=== PATIENT | male | born 1940 | race Caucasian/White ===

== ENCOUNTER 2016-08-19 08:35 | Inpatient (IN) | payer OTHER, MEDICARE ==
--- NOTE | 2016-08-14 08:51 | GHP ---
[f rep st] PREOP HISTORY AND PHYSICAL DATE OF ADMISSION: 08/19/2016 He will be an a.m. admission for surgery on August 19, 2016. PROBLEM: Right hip arthritis. HISTORY OF PRESENT ILLNESS: The patient is a 76-year-old man admitted for a right total hip arthrop lasty. He has had progressive pain in his right hip for the past 2 years. It has significantly wor sened since late 2015. He is having daily pain and night pain. Walking is painful. His activities are limited. He is using ibuprofen every day. He has trouble putting on his shoes and socks. He has tried physical therapy without much benefit. He has also tried dry needling which did not help. His activities of daily living are significantly affected by the pain in his hip. He is admitted for a right total hip arthroplasty. PAST MEDICAL HISTORY: He is treated for hypertension and glaucoma. No history of heart disease, st ents, DVT, hepatitis, or sleep apnea. No history of serious previous MRSA staph infections. CURRENT MEDICATIONS: Ibuprofen. DRUG ALLERGIES: None. He is allergic to bee stings. Metal allergy: None. Latex allergy: None. SOCIAL HISTORY: The patient is retired. He is . He does not smoke cigarettes and rustam garcia drinks alcohol. FAMILY HISTORY: Positive for cancer. PHYSICAL EXAMINATION: GENERAL: He is an alert, healthy-appearing man. EYES: His left eye has a p ermanently dilated pupil. MOUTH: Good oral hygiene. CHEST: Clear. HEART: Regular rhythm. No m urmurs. EXTREMITIES: Pertinent findings limited to his right hip. He has full hip extension and 9 0 degrees of flexion. External rotation 20 degrees. Internal rotation 0 degrees. Abduction 30 deg quintin. IMAGING: Films show severe degenerative arthritis of the right hip. He has some subchondral cysts in the acetabulum. He is bone on bone. He is 3 or 4 mm short on the right. IMPRESSION ON ADMISSION: 1. Right hip advanced degenerative arthritis. 2. Treatment for hypertension. 3. Treatment for glaucoma. 4. Permanently dilated left pupil. He will undergo a right total hip arthroplasty. The surgery has been described to him, including th e risks, complications, expectations, and recovery time. I have discussed with him the risk of disl ocation, leg length inequality, infection, and sciatic nerve injury. Nonsurgical options have been described. All his questions have been answered, and he consents to surgery. /[id number]/MODL
[~2016-08-19 08:35] MED LIST: ACETAMINOPHEN 325 MG TAB PO ONE; CEFAZOLIN 2 GM/DEXTR 100 ML IV ONE; CHLORHEXIDINE GLUC HIBICLENS 118 ML BTL TP ONE; DEXAMETHASONE 4 MG/ML VIAL IVP ONE; FAMOTIDINE 20 MG TAB PO ONE; NS IV ONE; POVIDONE-IODINE 20 ML in SODIUM CL IRRIG SOLUTION 500 ML IRR ONE; ROPI/epiNEPH/KETOROLAC JOINT COCKTAIL IU ONE; TRANEXAMIC ACID IV ONE
[2016-08-19] MEDS ORDERED: LR 1,000 ML IV ONE (09:08)
[2016-08-19] MEDS ORDERED: LIDOCAINE 1% 5 ML SDV ID PRN (09:08)
[2016-08-19] MEDS ORDERED: DEXAMETHASONE 4 MG/ML VIAL ONE (09:11)
[2016-08-19] MEDS ORDERED: ACETAMINOPHEN 325 MG TAB ONE (09:12)
[2016-08-19] MEDS ORDERED: FAMOTIDINE 20 MG TAB ONE (09:12)
[2016-08-19] MEDS ORDERED: CEFAZOLIN 2 GM/DEXTROSE/100 ML BAG IV ONE (09:12)
[2016-08-19] MEDS ORDERED: fentaNYL 100 MCG/2 ML INJ ONE (09:14)
[2016-08-19] MEDS ORDERED: PROPOFOL/EMULSION 500 MG/50 ML BOTTLE IV ONE (09:14)
[2016-08-19] MEDS ORDERED: ceFAZolin 1 GM/5 ML SYR ONE (09:33)
[2016-08-19] MEDS ORDERED: BUPIVACAINE 0.5% 30 ML SDV ONE (10:30)
[2016-08-19] MEDS ORDERED: GLYCOPYRROLATE 0.2 MG/1 ML VIAL ONE (11:00)
[2016-08-19] MEDS ORDERED: ATROPINE SULFATE 1 MG/ML VIAL ONE (11:02)
[2016-08-19] MEDS ORDERED: epHEDrine SULFATE 10 MG/ML SYR ONE (11:09)
[2016-08-19] MEDS ORDERED: PHENYLEPHRINE 10 MG/ML SDV ONE ×2 (11:10→12:06)
--- NOTE | 2016-08-19 12:05 | POSTOPPROG ---
Post Op Note Date of Operation: 08/19/16 Surgeon: Alexis Rodríguez Showroom Salesperson: Lobito Anesthesiologist: Shanda Anesthesia: IV Sedation, Spinal Post-op Diagnosis: R hip arthritis Procedure: R PRINCESS Inf/Abcess present in the surg proc area at time of surgery?: No EBL: 100-500
[2016-08-19] MEDS ORDERED: traMADol 50 MG TAB PO PRN (12:20)
[2016-08-19] MEDS ORDERED: PHARMACY PAIN CONSULT 1 EA MISC PRN (12:20)
[2016-08-19] MEDS ORDERED: PROMETHAZINE HCL 25 MG SUPPR PR PRN (12:20)
[2016-08-19] MEDS ORDERED: CYCLOBENZAPRINE 10 MG TAB PO PRN (12:20)
[2016-08-19] MEDS ORDERED: ONDANSETRON 4 MG/2 ML VIAL IVP PRN (12:20)
[2016-08-19] MEDS ORDERED: POLYETHYLENE GLYCOL 3350 17 GM PKT PO PRN (12:20)
[2016-08-19] MEDS ORDERED: LACTULOSE 20 GM/30 ML UDCUP PO PRN (12:20)
[2016-08-19] MEDS ORDERED: ONDANSETRON DISINTEGRATING 4 MG TAB PO PRN (12:20)
[2016-08-19] MEDS ORDERED: METOCLOPRAMIDE 10 MG/2 ML VIAL IVP PRN (12:20)
[2016-08-19] MEDS ORDERED: DIPHENOXYLATE/ATROPINE LOMOTIL 1 TAB PO PRN (12:20)
[2016-08-19] MEDS ORDERED: NS 500 ML IV PRN (12:20)
[2016-08-19] MEDS ORDERED: TEMAZEPAM 15 MG CAP PO PRN (12:20)
[2016-08-19] MEDS ORDERED: MAGNESIUM HYDROXIDE 30 ML UDCUP PO PRN (12:20)
[2016-08-19] MEDS ORDERED: diphenhydrAMINE 25 MG CAP PO PRN (12:20)
[2016-08-19] MEDS ORDERED: BISACODYL 10 MG SUPP PR PRN (12:20)
[2016-08-19] MEDS ORDERED: KETOROLAC 30 MG/1 ML SDV IVP PRN (12:20)
[2016-08-19] MEDS ORDERED: LR 1,000 ML IV SCH (12:30)
[2016-08-19] MEDS: oxyCODONE IR 5 MG TAB PO PRN ×2 (14:33→17:58)
[2016-08-19] MEDS: ceFAZolin 2 GM/DEXTROSE 100 ML IV SCH ×2 (15:12→21:49)
[2016-08-19] MEDS: PILOCARPINE 1% 15 ML OPHT.BTL LEFTEYE SCH ×2 (15:31→19:58)
--- NOTE | 2016-08-19 15:56 | GOP ---
[f rep st] OPERATIVE REPORT DATE OF OPERATION: 08/19/2016 SURGEON: Alexis Rodríguez MD WORK MEASUREMENT ENGINEER: ANDRZEJ Vick and Seth Sanders CFA ANESTHESIA: Combination of Marcaine spinal and IV sedation by Celso Land MD. PREOPERATIVE DIAGNOSIS: Right hip severe degenerative arthritis. POSTOPERATIVE DIAGNOSIS: Right hip severe degenerative arthritis. PROCEDURE PERFORMED: Right total hip arthroplasty, Oxinium femoral head on highly cross-linked poly ethylene cup liner. FINDINGS: DESCRIPTION OF PROCEDURE: DICTATION ENDS HERE /[id number]/MODL
[2016-08-19] MEDS: TRANEXAMIC ACID 650 MG TAB PO SCH (17:58)
[2016-08-19] MEDS: ACETAMINOPHEN 325 MG TAB PO SCH ×2 (17:58→23:10)
[2016-08-19] MEDS: LEVOBUNOLOL 0.5% 5 ML OPHT.BTL EACHEYE SCH (18:01)
[2016-08-19] MEDS: ASPIRIN 325 MG TAB PO SCH (20:03)
[2016-08-19] MEDS: SENNOSIDES/DOCUSATE SODIUM TAB PO SCH (20:04)
[2016-08-19] MEDS: FAMOTIDINE 20 MG TAB PO SCH (20:04)
[2016-08-19] MEDS ORDERED: LATANOPROST 0.005% 2.5 ML OPHT DROPS EACHEYE SCH (21:00)
[2016-08-20] MEDS: TRANEXAMIC ACID 650 MG TAB PO SCH ×2 (01:57→09:20)
[2016-08-20] MEDS: ACETAMINOPHEN 325 MG TAB PO SCH (05:14)
[2016-08-20] MEDS: PILOCARPINE 1% 15 ML OPHT.BTL LEFTEYE SCH (05:15)
[2016-08-20 05:26] LABS: HEMATOCRIT 37.2 % (40.0-51.0); HEMOGLOBIN 12.9 g/dL (13.7-17.5)
[2016-08-20] MEDS: LEVOBUNOLOL 0.5% 5 ML OPHT.BTL EACHEYE SCH (07:02)
[2016-08-20 08:03] VITALS: RESP 16
--- NOTE | 2016-08-20 08:18 | GOP ---
[f rep st] OPERATIVE REPORT DATE OF OPERATION: 08/19/2016 SURGEON: Alexis Rodríguez MD LEAD RETAIL SALES ASSOCIATE: Nick Mcdaniels, PAC and Seth Sanders CFA. ANESTHESIA: A combination of Marcaine, spinal and IV sedation. ANESTHESIOLOGIST: Celso Land MD. PREOPERATIVE DIAGNOSIS: Right hip advanced degenerative arthritis. POSTOPERATIVE DIAGNOSIS: Right hip advanced degenerative arthritis. PROCEDURE PERFORMED: August 19, 2016, a right total hip arthroplasty. FINDINGS: DESCRIPTION OF PROCEDURE: The patient was given 2 g of IV Ancef preoperatively within 60 minutes of surgery. He also received IV tranexamic acid at a dose of 20 mg/kg. He was placed on the operating room table and given spinal anesthesia with Marcaine by Dr. Land. He was then placed supine and given IV sedation. A South catheter was not used. He wore a BRITNEY stocking and SCD on the nonoperative leg. He was rolled to the left lateral decubitus position. The position was secured with the pegboard table attachment. An axillary roll was used, and all pressure points were carefully padded. I was careful to lock his pelvis in a rigid vertical position. His perineum was isolated with plastic adhesive drapes. The right hip and right lower extremity were prepped with ChloraPrep. They were draped free using sterile sheets, stockinette, and Ioban plastic drape. The [employer] time-out was performed to verify the correct surgical side and site and the correct patient identity. The [place] time-out was also performed. I made a 4 to 5 inch straight oblique posterolateral hip skin incision. The subcutaneous tissues were sharply divided, and hemostasis was obtained using electrocautery. The fascia aakash was identified and split along the axis of its fibers. I then curved posteriorly and proximally and split the fascia of the gluteus juan luis and bluntly split the muscle fibers in line with their orientation. This was a modified direct superior approach. I divided only a short portion of the proximal fascia aakash. The Charnley self-retaining retractor was inserted. His sciatic nerve was located, partially exposed and protected throughout the procedure. The external rotators and the posterior hip capsule were divided as separate layers at the base of the femoral neck, tagged and reflected posteriorly. A smooth 1/4 inch Steinmann pin was inserted vertically into the ilium superior to the acetabulum. An 1/8 inch drill bit was inserted vertically into the greater trochanter parallel to the first pin. The distance between the two was measured for leg length reference. His femoral head was dislocated posteriorly. Severe degenerative changes were present on the head. The femoral neck was osteotomized at the appropriate level and inclination. I was careful to preserve all the posterior capsule and most of the anterior capsule. The remnant of his badly damaged labrum was excised. I prepared the femur first. This allowed me to fondant cooker the amount of natural femoral neck anteversion. This, in turn allowed me to later determine the correct amount of cup anteversion. He had approximately 10 degrees of natural femoral neck anteversion. The canal was opened laterally with a box chisel. I then reamed and broached sequentially up to size 12. I used a size 12 broach as a trial stem. I was careful to lateralize adequately. Appropriate retractors were inserted to expose the acetabulum. The acetabulum was reamed sequentially up to 53 mm. I selected a 54 mm Bennett and Nephew solid backed hemispherical shell. This was tapped securely into place in the proper degree of inclination and anteversion. I used the transverse acetabular ligament and other bony acetabular landmarks to help me properly orient the cup. Supplemental screw fixation was not necessary. I inserted a screw-in metal dome hole plug. I performed a series of trial reductions to check length and stability. I took an intraoperative cross-table AP pelvis x-ray. This demonstrated good position of the cup, good fit and fill of the femoral component and appropriate leg length. He was a few millimeters short preoperatively, and I was intentionally lengthening him. The flush Bennett and Nephew R3 highly cross-linked polyethylene liner was inserted and tapped securely into place. I selected a Bennett and Nephew stem in a size 12 with standard offset. This was inserted press-fit and was very tight. I did 1 final trial reduction and confirmed that the -2/5 mm neck length with the 36 mm head was the proper combination. I selected a Bennett and Nephew Oxinium head with an outside diameter of 36 mm and a neck length of -2.5 mm. The head was tapped securely onto the clean trunnion. The acetabulum was irrigated and cleaned, and the hip was reduced 1 final time. 40 mL of the joint anesthetic cocktail were injected into the capsule, the deep musculature and the subcutaneous tissues along the skin edges. The joint was thoroughly irrigated 1 final time with a dilute Betadine solution. His sciatic nerve was reinspected and looked unharmed. The external rotators and the posterior hip capsule were repaired in separate layers with #2 FiberWire sutures through drill holes in the greater trochanter. This provided a strong posterior capsular and external rotator repair. The fascia aakash was closed with a single [id number] #2 FiberWire suture followed by a running #2 barbed Ethicon Stratafix PDO suture. The subcutaneous tissues were closed with a running 0 barbed Ethicon Stratafix Monoderm suture. The skin was closed with a running 3-0 barbed Ethicon Stratafix Monoderm subcuticular suture. The skin edges were reapproximated and sealed with Dermabond glue. The wound was covered with a strip of Telfa, and everything was held in place with a piece of clear plastic Tegaderm. A long-leg BRITNEY stocking and SCD were applied to his right lower extremity. He wore a stocking and SCD on the opposite leg during the procedure. An abduction pillow was placed between his knees. He was awakened from anesthesia and rolled to the supine position on his gurney. He was taken to the PACU in satisfactory condition. There were no recognized intraoperative complications. The estimated blood loss was about 300 mL. I used a Bennett and Nephew R3 hemispherical solid-backed acetabular shell with an outside diameter of 54 mm. The liner was a Bennett and Nephew flush highly cross-linked liner with an inside diameter ongoing 36 mm. The femoral component was a press-fit Bennett and Nephew standard offset Synergy stem in a size 12. The femoral head was a Bennett and Nephew Oxinium head with a -2.5 mm neck length and a 36 mm outside diameter. ANDRZEJ Vick and Seth Sanders CFA acted as surgical assistants. Their assistance was a medical necessity. /[id number]/MODL MTDD
[2016-08-20] MEDS ORDERED: FERROUS SULFATE 140 MG TAB.ER PO SCH (09:00)
[2016-08-20] MEDS ORDERED: MULTIVITAMINS 1 EACH TAB PO SCH (09:00)
[2016-08-20] MEDS ORDERED: HYDROCHLOROTHIAZIDE 25 MG TAB PO SCH (09:00)
[2016-08-20] MEDS: ASPIRIN 325 MG TAB PO SCH (09:19)
[2016-08-20] MEDS: FAMOTIDINE 20 MG TAB PO SCH (09:20)
[2016-08-20] MEDS: SENNOSIDES/DOCUSATE SODIUM TAB PO SCH (09:23)
--- NOTE | 2016-08-20 09:45 | SOAPPROG ---
SOAP Progress Note Assessment/Plan: Assessment: Afebrile. Mild pain. Has been walking in room. Voiding well. Sciatic nerve intact. H/H is good. Films look good. Plan: Up with PT today. DC later today 08/20/16 09:42 Objective: Vital Signs Temp Pulse Resp BP Pulse Ox 36.3 C 69 16 120/79 92 08/20/16 08:00 08/20/16 08:00 08/20/16 08:00 08/20/16 08:00 08/20/16 08:00 Laboratory Results 08/20/16 04:12 08/19/16 08/20/16 08/21/16 05:59 05:59 05:59 Intake Total 2255 Output Total 1160 250 Balance 1095 -250 ICD10 Worksheet Patient Problems: Problems Problem Status Onset Osteoarthritis of right hip Acute Osteoarthritis of right hip Acute Osteoarthritis of right hip Acute
--- NOTE | 2016-08-20 10:13 | GDS ---
[f rep st] DISCHARGE SUMMARY ADMISSION DIAGNOSIS: Right hip arthritis. DISCHARGE DIAGNOSIS: Right hip arthritis. OPERATION PERFORMED: 08/19/2016: A right total hip arthroplasty, Oxinium femoral head on highly cr oss-linked polyethylene cup liner. POSTOPERATIVE COMPLICATIONS: None. CONDITION ON DISCHARGE: Improved. DESCRIPTION OF HOSPITAL COURSE: The patient was admitted to the hospital on the morning of surgery. His admission CBC and electrolytes were normal. BUN 25, creatinine 1.0. The same day under a com bination of Marcaine spinal and IV sedation, he underwent a right total hip arthroplasty. Postopera tively, he was treated with multimodal DVT prophylaxis including early mobilization and aspirin. On the 1st postoperative day, his hemoglobin and hematocrit were 12.9 and 37.2. He did not require an y transfused blood. He was seen by Physical Therapy and made excellent progress with ambulation and stairs. By the time of discharge, he was afebrile and his wound was clean and dry. He was indepen dent walking with a walker. DISPOSITION: Patient is discharged to his home. He will go to outpatient physical therapy. I will see him back in the office on September 08, 2016. He may progress to full weightbearing on the right as tolerated. Use an abduction pillow in bed for 3 weeks. Use BRITNEY stockings for 1 week. He has presc riptions for oxycodone and tramadol for pain control. If there are any problems, he is to call me a t the office. /[id number]/MODL
[2016-08-20 11:33] VITALS: BP 147/78; PULSE 65; TEMP 98.3; O2SAT 96
[2016-08-20] MEDS ORDERED: PILOCARPINE 1% 15 ML OPHT.BTL LEFTEYE SCH (12:00)
[2016-08-20] MEDS ORDERED: LATANOPROST 0.005% 2.5 ML OPHT DROPS EACHEYE SCH (21:00)
[2016-08-20] MEDS ORDERED: LEVOBUNOLOL 0.5% 5 ML OPHT.BTL EACHEYE SCH (21:00)
[2016-08-21] MEDS ORDERED: CHOLECALCIFEROL VIT D3 1,000 UNITS TAB PO SCH (09:00)
[2016-08-21] MEDS ORDERED: MULTIVITAMINS 1 EACH TAB PO SCH (09:00)
[2016-08-21] MEDS ORDERED: Herbals/Supplements -Info Only PO SCH (09:00)
[2016-08-21] MEDS ORDERED: HYDROCHLOROTHIAZIDE 25 MG TAB PO SCH (09:00)
== END 2016-08-20 13:03 | disposition home or self-care (01) | DRG 470 ==
LOC: F3N 08:35
PROVIDERS: ADMIT Orthopaedic Surgery; ATTEND Orthopaedic Surgery
PROC: 0SR904Z Replacement of Right Hip Joint with Ceramic on Polyethylene Synthetic Substitute, Open Approach (ICD-10-PCS; principal; 2016-08-19 10:30)
DX: M16.11 Unilateral primary osteoarthritis, right hip (principal); I10 Essential (primary) hypertension; H40.9 Unspecified glaucoma
CPT/HCPCS: 97116-GP; 97161-GP; 97165-GO; G8978-GP-CK; G8979-GP-CI; G8980-GP-CI; G8987-GO-CI; G8988-GO-CI; G8989-GO-CI; J0171; J0461; J0690; J1100; J1885; J2370; J2704; J2795; J3010

== ENCOUNTER → 2018-02-22 | Outpatient (CLI) | payer OTHER, MEDICARE ==
[~2018-02-22] MED LIST changes: -ACETAMINOPHEN 325 MG TAB PO ONE; -CEFAZOLIN 2 GM/DEXTR 100 ML IV ONE; -CHLORHEXIDINE GLUC HIBICLENS 118 ML BTL TP ONE; -DEXAMETHASONE 4 MG/ML VIAL IVP ONE; -FAMOTIDINE 20 MG TAB PO ONE; +IOPAMIDOL (ISOVUE-300) 100 ML BTL ONE; -NS IV ONE; -POVIDONE-IODINE 20 ML in SODIUM CL IRRIG SOLUTION 500 ML IRR ONE; -ROPI/epiNEPH/KETOROLAC JOINT COCKTAIL IU ONE; -TRANEXAMIC ACID IV ONE
== END ==
LOC: FIMAGING 13:45
PROVIDERS: ATTEND Internal Medicine Gastroenterology
DX: K57.30 Diverticulosis of large intestine without perforation or abscess without bleeding (principal); R19.00 Intra-abdominal and pelvic swelling, mass and lump, unspecified site; N20.0 Calculus of kidney
CPT/HCPCS: 74177; Q9967; 82565-PO

== ENCOUNTER → 2018-07-15 | Outpatient (CLI) | payer OTHER, MEDICARE | LOC: BHFA 11:30 | PROVIDERS: ATTEND Internal Medicine Cardiovascular Disease | DX: G47.39 Other sleep apnea (principal); I10 Essential (primary) hypertension ==